=== PATIENT | female | born 1970 | race African-American/Black ===

== ENCOUNTER 2020-02-09 09:59 | Outpatient (CLI) | payer BC ==
--- NOTE | 2020-03-04 09:06 | MMO ---
Bilateral MAMMO Bilat Screen [facility]. CLINICAL HISTORY: Patient is 49 years old and is seen for screening. The patient has no family history of breast cancer. The patient has no personal history of cancer. VIEWS: The views performed were: bilateral craniocaudal with tomosynthesis and bilateral mediolateral oblique with tomosynthesis. FILMS COMPARED: The present examination has been compared to a prior imaging study performed at [facility] on 06/23/2016. This study has been interpreted with the assistance of computer-aided detection. MAMMOGRAM FINDINGS: There are scattered fibroglandular densities. There are no suspicious masses, suspicious calcifications, or new areas of architectural distortion. IMPRESSION: THERE IS NO MAMMOGRAPHIC EVIDENCE OF MALIGNANCY. A ROUTINE FOLLOW-UP MAMMOGRAM IN 1 YEAR IS RECOMMENDED. THE RESULTS OF THIS EXAM WERE SENT TO THE PATIENT. ACR BI-RADS Category 1 - Negative MAMMOGRAPHY NOTE: 1. A negative mammogram report should not delay a biopsy if a dominant of clinically suspicious mass is present. 2. Approximately 10% to 15% of breast cancers are not detected by mammography. 3. Adenosis and dense breasts may obscure an underlying neoplasm. Reported by: MARIANA NGUYEN MD Electonically Signed: [id number]
== END 2020-02-09 10:00 | disposition home or self-care (01) ==
LOC: BICMAMMO 09:59
PROVIDERS: ATTEND Physician Assistant Medical
DX: Z12.31 Encounter for screening mammogram for malignant neoplasm of breast (principal)
CPT/HCPCS: 77063; 77067

== ENCOUNTER 2020-05-28 09:03 | Outpatient (CLI) | payer BC | END 2020-05-28 09:04 | disposition home or self-care (01) | LOC: TBSIIMAG 09:03 | PROVIDERS: ATTEND Orthopaedic Surgery | DX: S83.411A Sprain of medial collateral ligament of right knee, initial encounter (principal); M25.861 Other specified joint disorders, right knee; R60.0 Localized edema ==

== ENCOUNTER 2020-12-30 22:55 | Emergency (ER) | payer BC | END 2020-12-31 00:08 | disposition home or self-care (01) | LOC: ERS 22:55 | DX: H92.02 Otalgia, left ear (principal) | CPT/HCPCS: 99281 ==

== ENCOUNTER 2021-03-05 11:20 | Outpatient (CLI) | payer BC | END 2021-03-05 11:21 | disposition home or self-care (01) | LOC: BICMAMMO 11:20 | PROVIDERS: ATTEND Physician Assistant Medical | DX: Z12.31 Encounter for screening mammogram for malignant neoplasm of breast (principal) | CPT/HCPCS: 77063; 77067 ==

== ENCOUNTER 2021-03-10 14:15 | Outpatient (CLI) | payer BC | END 2021-03-10 14:16 | disposition home or self-care (01) | LOC: BICMAMMO 14:15 | PROVIDERS: ATTEND Physician Assistant Medical | DX: R92.8 Other abnormal and inconclusive findings on diagnostic imaging of breast (principal); N60.02 Solitary cyst of left breast | CPT/HCPCS: G0279 ==

== ENCOUNTER 2021-07-16 09:04 | Outpatient (CLI) | payer BC ==
[2021-07-16 10:34] LABS: #Eosinphils 0.2 thou/uL (0.0-0.7); #Lymphocytes 1.7 thou/uL (1.20-3.40); #Monocytes 0.7 thou/uL (0.11-0.59); #Neutrophils 7.3 thou/uL (1.40-6.50); %Basophils 0.3 % (0.0-1.0); %Eosinophils 2.2 % (0.0-10.0); %Lymphocytes 17.2 % (21.0-51.0); %Monocytes 6.7 % (0.0-10.0); %Neutrophils 73.6 % (42.0-75.0); Hemoglobin 12.6 g/dL (12.0-16.0); Mean Corpuscular HGB CONC 31.6 g/dL (32.0-36.0); Mean Corpuscular Hemoglobin 29.6 pg (27.0-31.0); Mean Corpuscular Volume 93.7 fL (78.0-98.0); Platelet Count 218 thou/uL (130-400); RBC Distribution Width 12.4 % (11.5-14.5); Red Blood Cell (RBC) Count 4.25 mill/uL (4.20-5.40); White Blood Cell (WBC) Count 9.9 thou/uL (4.8-10.8)
[2021-07-16 11:03] LABS: ALT (SGPT) 277 U/L (8-55); AST (SGOT) 200 U/L (5-34); Albumin 4.2 g/dL (3.5-5.0); Alkaline Phosphatase 97 U/L (40-110); Bilirubin, Direct 0.4 mg/dL (0.1-0.3); Gamma GT (GGT) 358 U/L (9-36)
== END 2021-07-16 09:05 | disposition home or self-care (01) ==
LOC: ULT 09:04
PROVIDERS: ATTEND Student in an Organized Health Care Education/Training Program
DX: R74.8 Abnormal levels of other serum enzymes (principal); K80.20 Calculus of gallbladder without cholecystitis without obstruction; N28.1 Cyst of kidney, acquired; K83.8 Other specified diseases of biliary tract
CPT/HCPCS: 76705; 80076; 82977; 85025

== ENCOUNTER 2022-04-03 13:44 | Outpatient (CLI) | payer BC | END 2022-04-03 13:45 | disposition home or self-care (01) | LOC: BICULT 13:44 → ULT 13:45 | PROVIDERS: ATTEND Student in an Organized Health Care Education/Training Program | DX: E04.2 Nontoxic multinodular goiter (principal); E03.9 Hypothyroidism, unspecified | CPT/HCPCS: 76536 ==

== ENCOUNTER 2023-02-19 09:55 | Outpatient (CLI) | payer BC | END 2023-02-19 09:56 | disposition home or self-care (01) | LOC: BICMAMMO 09:55 | PROVIDERS: ATTEND Family Medicine | DX: Z12.31 Encounter for screening mammogram for malignant neoplasm of breast (principal) | CPT/HCPCS: 77063; 77067 ==

== ENCOUNTER 2023-08-17 10:41 | Outpatient (CLI) | payer BC | END 2023-08-17 10:42 | disposition home or self-care (01) | LOC: BICULT 10:41 | PROVIDERS: ATTEND Student in an Organized Health Care Education/Training Program | DX: E04.2 Nontoxic multinodular goiter (principal) | CPT/HCPCS: 76536 ==

== ENCOUNTER 2023-11-27 14:46 | Emergency (ER) | payer BC ==
[2023-11-27 16:03] LABS: #Basophils 0.04 10x3/uL (0.0-0.2); %Basophils 0.5 % (0.0-1.0); %Eosinophils 2.5 % (0.0-10.0); %Lymphocytes 23.7 % (21.0-51.0); %Monocytes 7.9 % (0.0-10.0); %Neutrophils 65.2 % (42.0-75.0); Hematocrit 40.3 % (36.0-47.0); Hemoglobin 13.2 g/dL (12.0-16.0); Mean Corpuscular HGB CONC 32.8 g/dL (32.0-36.0); Mean Corpuscular Hemoglobin 29.5 pg (27.0-31.0); Mean Platelet Volume 10.8 fL (7.4-10.4); Platelet Count 233 10x3/uL (130-400); RBC Distribution Width 12.9 % (11.5-14.5); Red Blood Cell (RBC) Count 4.48 mill/uL (4.20-5.40)
[2023-11-27 16:22] LABS: Troponin I Less than 0.010 ng/mL (< 0.028)
[2023-11-27 16:23] LABS: ALT (SGPT) 16 U/L (8-55); AST (SGOT) 16 U/L (5-34); Albumin 3.8 g/dL (3.5-5.0); Alkaline Phosphatase 51 U/L (40-110); Anion Gap 11 mmol/L (10-20); BUN (Urea Nitrogen) 12 mg/dL (9.8-20.1); Bilirubin, Total 0.5 mg/dL (0.2-1.2); Calc. Creatinine Clearance 0 mL/min (70-130); Calcium 9.8 mg/dL (7.8-10.44); Carbon Dioxide 31 mmol/L (22-29); Chloride 103 mmol/L (98-107); Estimated GFR 64; Globulin 4.6 g/dL (2.4-3.5); Glucose 95 mg/dL (70-105); Potassium 3.8 mmol/L (3.5-5.1); Protein, Total 8.4 g/dL (6.0-8.3); Sodium 141 mmol/L (136-145)
== END 2023-11-27 18:25 | disposition home or self-care (01) ==
LOC: ERS 14:46
DX: M79.622 Pain in left upper arm (principal)
CPT/HCPCS: 36415; 71045; 80053; 84484; 85025; 93005